=== PATIENT | male | born 1995 | race Caucasian/White ===

== ENCOUNTER 2016-05-07 16:05 | Emergency (ER) | payer OTHER ==
--- NOTE | 2016-05-07 16:50 | Emergency Department Report ---
Chief Complaint: Psych Stated Complaint: PSYCH EVALUATION Time Seen by Provider: 05/07/16 16:49 - HPI History of Present Illness: Patient here reports that he is suicidal and attempted suicide several times he said he has a plan to himself and try to hang himself today. Denies any homicide ideation. Denies any pain. Patient is bipolar and going through a lot of suffering now. Patient has not taken any medication in 7 years. No mental health support. Patient to asset management coordinator Mexitil, lithium, Risperdal and trazodone in the past. - ROS Review of Systems: All Systems are negative unless stated in HPI above. - Exam Vital Signs: Vital Signs 05/07/16 16:09 Temperature 98.6 F Pulse Rate 78 Blood Pressure 142/78 O2 Sat by Pulse 99 Oximetry Resp 19/min Physical Exam: General: This is a 21-year-old male well-nourished well-developed but is nontoxic in appearance. Psych: Positive suicide ideation. Patient has a plan to hang himself. Negative hallucination. Flat affect. CV: S1, S2. Regular rate rhythm negative murmur MSE screening note: Focused history and physical exam performed. Due to findings the following was ordered:see [facility] ED Medical Decision Making - Medical Decision Making Medical decision making: Patient seen by provider in triage area. Appropriate protocol activated and patient to main ED to be seen by physician. ED Disposition for MSE Condition: Stable
[2016-05-07 17:07] LABS: Basophils % (Auto) 0.5 % (0.0-1.8); Hematocrit 47.4 % (35.5-45.6); Hemoglobin 16.2 gm/dl (11.8-15.2); Mean Corpuscular HGB Conc 34 % (32-34); Mean Corpuscular Hemoglobin 33 pg (28-32); Mean Corpuscular Volume 95 fl (84-94); Platelet Count 246 K/mm3 (140-440); Red Cell Distribution Width 12.5 % (13.2-15.2); White Blood Count 5.2 K/mm3 (4.5-11.0)
[2016-05-07] MEDS ORDERED: ATIVAN IM PRN (17:17)
[2016-05-07] MEDS ORDERED: BENADRYL IM PRN (17:17)
[2016-05-07] MEDS ORDERED: HALDOL ONE (17:17)
[2016-05-07] MEDS ORDERED: ATIVAN ONE (17:17)
[2016-05-07] MEDS ORDERED: HALDOL IM PRN (17:17)
[2016-05-07] MEDS ORDERED: BENADRYL ONE (17:17)
[2016-05-07 17:26] LABS: Blood Urea Nitrogen 15 mg/dL (9-20); Calcium 9.6 mg/dL (8.4-10.2); Carbon Dioxide 24 mmol/L (22-30); Chloride 101.2 mmol/L (98-107); Glucose 99 mg/dL (75-100); Potassium 3.8 mmol/L (3.6-5.0); Sodium 141 mmol/L (137-145)
[2016-05-07 17:29] LABS: Anion Gap 20 mmol/L
--- NOTE | 2016-05-07 17:36 | Emergency Department Report ---
HPI - General Chief Complaint: Psych Time Seen by Provider: 05/07/16 17:17 - HPI HPI: Room 15 The patient is a 21-year-old male presenting with a chief complaint of suicidal ideation. Patient states she has a history of bipolar disorder since she was a child but has not been on medication since 2010. The patient states he still suicidal and was planning on hurting himself when his roommate convinced him to come get help. The patient states she is tired of being angry and Tylenol always wanting to kill himself. Patient denies any active attempts at harming himself, just the plan. Location: Mental status Duration: [see above] Quality: Suicidal Severity: Severe Modifying factors: [see above] Context: [see above] Mode of transportation: [not driving] ED Past Medical Hx - Past Medical History Hx Psychiatric Treatment: Yes (bipolar disorder) Hx Asthma: Yes - Surgical History Past Surgical History?: Yes Additional Surgical History: Right Hand - Family History Family history: no significant - Social History Smoking Status: Current Every Day Smoker Substance Use Type: Alcohol ED Review of Systems ROS: Stated complaint: PSYCH EVALUATION Other details as noted in HPI Comment: All other systems reviewed and negative Constitutional: denies: chills, fever Eyes: denies: eye pain, eye discharge, vision change ENT: denies: ear pain, throat pain Respiratory: denies: cough, shortness of breath, wheezing Cardiovascular: denies: chest pain, palpitations Endocrine: no symptoms reported Gastrointestinal: denies: abdominal pain, nausea, diarrhea Genitourinary: denies: urgency, dysuria Musculoskeletal: denies: back pain, joint swelling, arthralgia Skin: denies: rash, lesions Neurological: denies: headache, weakness, paresthesias Psychiatric: suicidal thoughts Hematological/Lymphatic: denies: easy bleeding, easy bruising Physical Exam - Physical Exam Vital Signs: Vital Signs 05/07/16 16:09 Temperature 98.6 F Pulse Rate 78 Blood Pressure 142/78 O2 Sat by Pulse 99 Oximetry Physical Exam: GENERAL: The patient is well-developed well-nourished male appearing emotionally distraught in room 15. [] HEENT: Normocephalic. Atraumatic. Extraocular motions are intact. Patient has moist mucous membranes. NECK: Supple. Trachea midline. No evidence of trauma CHEST/LUNGS: Clear to auscultation. There is no respiratory distress noted. HEART/CARDIOVASCULAR: Regular. There is no tachycardia. There is no gallop rub or murmur. ABDOMEN: Abdomen is soft, nontender. Patient has normal bowel sounds. There is no abdominal distention. SKIN: There is no rash. There is no edema. There is no diaphoresis. NEURO: The patient is awake, alert, and oriented. The patient is cooperative. The patient has no focal neurologic deficits. The patient has normal speech and gait. MUSCULOSKELETAL: There is no evidence of acute injury. ED Course Vital Signs 05/07/16 16:09 Temperature 98.6 F Pulse Rate 78 Blood Pressure 142/78 O2 Sat by Pulse 99 Oximetry ED Medical Decision Making - Lab Data Result diagrams: 05/07/16 16:55 05/07/16 16:55 Laboratory Tests 05/07/16 05/07/16 05/07/16 16:55 16:55 16:55 WBC 5.2 RBC 5.00 Hgb 16.2 H Hct 47.4 H MCV 95 H MCH 33 H MCHC 34 RDW 12.5 L Plt Count 246 Lymph % (Auto) 21.7 [place] % (Auto) 8.4 H Eos % (Auto) 1.0 Baso % (Auto) 0.5 Lymph # 1.1 L [place] # 0.4 Eos # 0.1 Baso # 0.0 Seg Neutrophils % 68.4 Seg Neutrophils # 3.6 Sodium 141 Potassium 3.8 Chloride 101.2 Carbon Dioxide 24 Anion Gap 20 BUN 15 Creatinine 1.0 Estimated GFR > 60 BUN/Creatinine Ratio 15.00 Glucose 99 Calcium 9.6 Total Bilirubin Direct Bilirubin Indirect Bilirubin AST ALT Alkaline Phosphatase Total Protein Albumin Albumin/Globulin Ratio TSH Free T4 Urine Color Urine Turbidity Urine pH Ur Specific [place] Urine Protein Urine Glucose (UA) Urine Ketones Urine Blood Urine Nitrite Urine Bilirubin Urine Urobilinogen Ur Leukocyte Esterase Urine WBC (Auto) Urine RBC (Auto) U Epithel Cells (Auto) Urine Mucus Salicylates Acetaminophen Plasma/Serum Alcohol < 0.01 05/07/16 05/07/16 05/07/16 16:55 16:55 16:55 WBC RBC Hgb Hct MCV MCH MCHC RDW Plt Count Lymph % (Auto) [place] % (Auto) Eos % (Auto) Baso % (Auto) Lymph # [place] # Eos # Baso # Seg Neutrophils % Seg Neutrophils # Sodium Potassium Chloride Carbon Dioxide Anion Gap BUN Creatinine Estimated GFR BUN/Creatinine Ratio Glucose Calcium Total Bilirubin 0.9 Direct Bilirubin < 0.2 Indirect Bilirubin 0.7 AST 19 ALT 13 Alkaline Phosphatase 58 Total Protein 7.6 Albumin 5.0 Albumin/Globulin Ratio 1.9 TSH 1.120 Free T4 1.65 H Urine Color Urine Turbidity Urine pH Ur Specific [place] Urine Protein Urine Glucose (UA) Urine Ketones Urine Blood Urine Nitrite Urine Bilirubin Urine Urobilinogen Ur Leukocyte Esterase Urine WBC (Auto) Urine RBC (Auto) U Epithel Cells (Auto) Urine Mucus Salicylates < 0.3 L Acetaminophen Plasma/Serum Alcohol 05/07/16 05/07/16 16:55 17:27 WBC RBC Hgb Hct MCV MCH MCHC RDW Plt Count Lymph % (Auto) [place] % (Auto) Eos % (Auto) Baso % (Auto) Lymph # [place] # Eos # Baso # Seg Neutrophils % Seg Neutrophils # Sodium Potassium Chloride Carbon Dioxide Anion Gap BUN Creatinine Estimated GFR BUN/Creatinine Ratio Glucose Calcium Total Bilirubin Direct Bilirubin Indirect Bilirubin AST ALT Alkaline Phosphatase Total Protein Albumin Albumin/Globulin Ratio TSH Free T4 Urine Color Amy Urine Turbidity Clear Urine pH 5.0 Ur Specific [place] 1.032 H Urine Protein <15 mg/dl Urine Glucose (UA) Neg Urine Ketones 20 Urine Blood Neg Urine Nitrite Neg Urine Bilirubin Neg Urine Urobilinogen 2.0 Ur Leukocyte Esterase Neg Urine WBC (Auto) 1.0 Urine RBC (Auto) 4.0 U Epithel Cells (Auto) 2.0 Urine Mucus 3+ Salicylates Acetaminophen < 15.0 Plasma/Serum Alcohol - Differential Diagnosis bipolar disorder, suicidal ideation Critical care attestation.: If time is entered above; I have spent that time in minutes in the direct care of this critically ill patient, excluding procedure time. ED Disposition Clinical Impression: Suicidal ideation, Bipolar disorder Disposition: DC/TX PSY HOSP/PSY UNIT Is pt being admited?: No Does the pt Need Aspirin: No Condition: Serious Time of Disposition: 19:18 (awaiting acceptance)
[2016-05-07 17:50] LABS: Alanine Aminotransferase 13 units/L (7-56); Albumin/Globulin Ratio 1.9 %; Alkaline Phosphatase 58 units/L (35-129); Bilirubin,Total 0.9 mg/dL (0.1-1.2); Total Protein 7.6 g/dL (6.3-8.2)
[2016-05-07 17:52] LABS: Bilirubin,Direct < 0.2 mg/dL (0-0.2); Bilirubin,Indirect 0.7 mg/dL
[2016-05-07 18:42] LABS: Urine Drugs of Abuse Note Disclamer
[2016-05-07 19:08] LABS: Bilirubin,Urine NEG (Negative); Blood,Urine NEG (Negative); Ketones,Urine 20 mg/dL (Negative); Leukocyte Esterase,Urine NEG (Negative); Mucus,Urine 3+ /HPF; Nitrite,Urine NEG (Negative); Protein,Urine <15 mg/dL mg/dL (Negative)
--- NOTE | 2016-05-10 14:48 | Event Note ---
Date: 05/10/16 Vital signs reviewed. Await psychiatric placement. Vital Signs 05/07/16 05/07/16 05/08/16 16:09 22:17 08:04 Temperature 98.6 F 98.5 F 98.6 F Pulse Rate 78 91 H 76 Respiratory 18 16 Rate Blood Pressure 142/78 Blood Pressure 90/53 97/69 [Left] O2 Sat by Pulse 99 9 L 97 Oximetry 05/08/16 05/08/16 05/09/16 08:31 22:00 08:39 Temperature 98.0 F Pulse Rate 98 H Respiratory 18 18 18 Rate Blood Pressure Blood Pressure 118/74 [Left] O2 Sat by Pulse 97 98 98 Oximetry 05/09/16 05/09/16 05/10/16 10:00 22:00 08:01 Temperature 98.1 F 97.9 F Pulse Rate 91 H 84 Respiratory 14 16 16 Rate Blood Pressure Blood Pressure 110/71 108/60 [Left] O2 Sat by Pulse 98 98 98 Oximetry 05/10/16 09:54 Temperature 98.1 F Pulse Rate 65 Respiratory 16 Rate Blood Pressure Blood Pressure 108/68 [Left] O2 Sat by Pulse 99 Oximetry
--- NOTE | 2016-05-12 01:22 | Event Note ---
Date: 05/12/16 Vital signs are reviewed. No recent events. awaits psychiatric placement Vital Signs 05/07/16 05/07/16 05/08/16 16:09 22:17 08:04 Temperature 98.6 F 98.5 F 98.6 F Pulse Rate 78 91 H 76 Respiratory 18 16 Rate Blood Pressure 142/78 Blood Pressure 90/53 97/69 [Left] O2 Sat by Pulse 99 9 L 97 Oximetry 05/08/16 05/08/16 05/09/16 08:31 22:00 08:39 Temperature 98.0 F Pulse Rate 98 H Respiratory 18 18 18 Rate Blood Pressure Blood Pressure 118/74 [Left] O2 Sat by Pulse 97 98 98 Oximetry 05/09/16 05/09/16 05/10/16 10:00 22:00 08:01 Temperature 98.1 F 97.9 F Pulse Rate 91 H 84 Respiratory 14 16 16 Rate Blood Pressure Blood Pressure 110/71 108/60 [Left] O2 Sat by Pulse 98 98 98 Oximetry 05/10/16 05/10/16 05/11/16 09:54 19:40 09:19 Temperature 98.1 F 98.3 F Pulse Rate 65 88 Respiratory 16 18 16 Rate Blood Pressure Blood Pressure 108/68 111/72 [Left] O2 Sat by Pulse 99 98 Oximetry 05/11/16 05/11/16 05/11/16 09:21 09:25 20:09 Temperature 98.4 F Pulse Rate 71 Respiratory 16 16 18 Rate Blood Pressure Blood Pressure 105/57 [Left] O2 Sat by Pulse 98 Oximetry 05/11/16 22:00 Temperature 98.1 F Pulse Rate 59 L Respiratory 16 Rate Blood Pressure Blood Pressure 111/63 [Left] O2 Sat by Pulse 100 Oximetry
[2016-05-13] MEDS ORDERED: TESSALON PERLES PO ONE (12:14)
[2016-05-13 13:31] VITALS: BP 138/87
== END 2016-05-13 12:40 ==
LOC: ED 16:05 → EEVIPCON 16:05 → ED 05-13 12:40
DX: F31.9 Bipolar disorder, unspecified (principal); R45.851 Suicidal ideations; J45.909 Unspecified asthma, uncomplicated; F17.200 Nicotine dependence, unspecified, uncomplicated
CPT/HCPCS: 36415; 80048; 80074; 80307; 81001; 84439; 84443; 85025; 93005; 93010; 99285; G0480; J1200; J1630; J2060; 80320

== ENCOUNTER 2017-05-15 10:17 | Emergency (ER) | payer SELFPAY ==
[2017-05-15 10:36] VITALS: BP 118/77
--- NOTE | 2017-05-15 12:38 | Emergency Department Report ---
ED Male HPI - General Chief complaint: Urogenital-Male Stated complaint: HERPES EXPOSURE Time Seen by Provider: 05/15/17 12:32 Source: patient Mode of arrival: Ambulatory Limitations: No Limitations - History of Present Illness Initial comments: 22-year-old male past medical history asthma, bipolar disorder presents with complaint of concern to exposure to herpes. Patient states he has an oral lesion which started 2 days ago. Also noticed a small penile ulceration on the shaft of his penis. Patient is awake alert and oriented 3 denies fevers chills nausea vomiting. Denies any dysuria or hematuria. Denies penile discharge or any urinary burning. States that one of his female sex partners recently informed him that he may have been exposed to herpes. Patient is anxious regarding this issue. States lesions are slightly itchy. MD Complaint: other (groin rash) Onset/Timin -: days(s) Location: penis Severity: mild - Related Data Previous Rx's Medication Instructions Recorded Last Taken Type Acyclovir [Zovirax] 400 mg PO Q8H #21 tablet 05/15/17 Unknown Rx Docosanol [Abreva] 1 applicatio TP 5XD #1 cream..g. 05/15/17 Unknown Rx Allergies Allergy/AdvReac Type Severity Reaction Status Date / Time No Known Allergies Allergy Verified 05/08/16 06:05 ED Review of Systems ROS: Stated complaint: HERPES EXPOSURE Other details as noted in HPI Constitutional: denies: chills, fever Eyes: denies: eye pain, eye discharge, vision change ENT: denies: ear pain, throat pain Respiratory: denies: cough, shortness of breath, wheezing Cardiovascular: denies: chest pain, palpitations Endocrine: no symptoms reported Gastrointestinal: denies: abdominal pain, nausea, diarrhea Genitourinary: denies: urgency, dysuria Musculoskeletal: denies: back pain, joint swelling, arthralgia Skin: as per HPI. denies: rash, lesions Neurological: denies: headache, weakness, paresthesias Psychiatric: denies: anxiety, depression Hematological/Lymphatic: denies: easy bleeding, easy bruising ED Past Medical Hx - Past Medical History Previous Medical History?: Yes Hx Psychiatric Treatment: Yes (bipolar disorder) Hx Asthma: Yes - Surgical History Past Surgical History?: Yes Additional Surgical History: Right Hand - Social History Smoking Status: Current Every Day Smoker Substance Use Type: Alcohol, Cocaine - Medications Home Medications: Home Medications Medication Instructions Recorded Confirmed Last Taken Type Acyclovir [Zovirax] 400 mg PO Q8H #21 tablet 05/15/17 Unknown Rx Docosanol [Abreva] 1 applicatio TP 5XD #1 cream..g. 05/15/17 Unknown Rx ED Physical Exam - General Limitations: No Limitations General appearance: alert, in no apparent distress - Head Head exam: Present: atraumatic, normocephalic - Eye Eye exam: Present: normal appearance, PERRL, EOMI - ENT ENT exam: Present: mucous membranes moist, other (small herpetic lesion on angle of lips) - Neck Neck exam: Present: normal inspection - Respiratory Respiratory exam: Present: normal lung sounds bilaterally. Absent: respiratory distress - Cardiovascular Cardiovascular Exam: Present: regular rate, normal rhythm. Absent: systolic murmur, diastolic murmur, rubs, gallop - GI/Abdominal GI/Abdominal exam: Present: soft, normal bowel sounds - Rectal Rectal exam: Present: deferred - exam: Present: other (small ulceration on the left shaft of penis and 1 cm) - Extremities Exam Extremities exam: Present: normal inspection - Back Exam Back exam: Present: normal inspection - Neurological Exam Neurological exam: Present: alert, oriented X3 - Psychiatric Psychiatric exam: Present: normal affect, normal mood - Skin Skin exam: Present: warm, dry, intact, normal color. Absent: rash ED Course Vital Signs 05/15/17 10:31 Temperature 98.7 F Pulse Rate 90 Respiratory 20 Rate Blood Pressure 118/77 O2 Sat by Pulse 98 Oximetry ED Medical Decision Making - Medical Decision Making A/P: Clinical herpes infection 1-acylcovir 7 days course 2-topical abreva for oral lesion 3-f/u with PMD, i educated pt on subject Critical care attestation.: If time is entered above; I have spent that time in minutes in the direct care of this critically ill patient, excluding procedure time. ED Disposition Clinical Impression: Herpes Disposition: DC-01 TO HOME OR SELFCARE Is pt being admited?: No Does the pt Need Aspirin: No Condition: Stable Instructions: Genital Herpes Simplex (ED), Oral Herpes Simplex Virus Infections (ED), Acyclovir (By mouth) Prescriptions: Acyclovir [Zovirax] 400 mg PO Q8H #21 tablet Docosanol [Abreva] 1 applicatio TP 5XD #1 cream..g. Referrals: [facility] [Provider Group] - 3-5 Days [facility] [Outside] - 3-5 Days Forms: Accompanied Note, Work/School Release Form(ED) Time of Disposition: 12:38
== END 2017-05-15 13:11 | disposition home or self-care (01) ==
LOC: ED 10:17
DX: B00.9 Herpesviral infection, unspecified (principal); F17.200 Nicotine dependence, unspecified, uncomplicated; F31.9 Bipolar disorder, unspecified
CPT/HCPCS: 99282